=== PATIENT | male | born 1990 | race Caucasian/White ===

== ENCOUNTER 2018-03-28 17:42 | Emergency (ER) | payer MEDICAID ==
[~2018-03-28] VITALS: Ht 172.7 cm; Wt 75.0 kg
[2018-03-28 18:11] VITALS: BP 122/82
[2018-03-28] MEDS ORDERED: SULF1TAB49 PO (20:15)
[2018-03-28] MEDS ORDERED: ondansetron 4mg rapidly disintigrating tab PO ONE (20:15)
[2018-03-28] MEDS ORDERED: sulfamethoxazole/trimethoprim DS (800/160mg) tablet PO ONE (20:15)
[2018-03-28] MEDS ORDERED: HYDROcodone/acetaminophen 5mg/325mg tablet PO ONE (20:15)
[2018-03-28] MEDS ORDERED: HYDR-3965 PO (20:15)
== END 2018-03-28 20:39 | disposition home or self-care (01) ==
LOC: ER 17:43
DX: L03.012 Cellulitis of left finger (principal); J45.909 Unspecified asthma, uncomplicated
CPT/HCPCS: 99284